=== PATIENT | male | born 1980 | race Two or more races ===

== ENCOUNTER 2025-05-17 19:05 | Emergency (ER) | payer MEDICAID, OTHER ==
[~2025-05-17] VITALS: Ht 190.5 cm; Wt 90.7 kg
--- NOTE | 2025-05-17 20:20 | ED.PDOC ---
History of Present Illness HPI Comments 44-year-old male who came to ER for headaches. Patient has a history of migraine headaches, the past 2 days he has been experiencing headaches, right temporal headaches, right periorbital pain, right facial pain. Patient has self-medicated ibuprofen but offered no relief. Denies any recent head trauma REVIEW OF SYSTEMS: General: No fever, no chills, or fatigue HEENT: No sore throat, no earache, no congestion, no neck pain. Cardiac: No chest pain. No palpitations. Lungs: No shortness of breath, no cough. GI: No nausea, no vomiting, no diarrhea, no constipation, no abdominal pain : No dysuria, frequency, or urgency. No hematuria. Musculoskeletal: No joint pain , no joint swelling, no extremity edema. Skin: No rash, no itching. Neuro: (+) headache, no dizziness, no weakness EXAM: General: Awake, alert and oriented. No acute distress. Skin: Skin in warm, dry and intact. Appropriate color for ethnicity. HEENT: The head is normocephalic and atraumatic. Conjunctivae are clear without exudates or hemorrhage. Sclera is non-icteric. EOM are intact. No signs of nystagmus. Eyelids are normal in appearance without swelling or lesions. Oral mucosa is pink and moist Neck: The neck is supple with normal range of motion. No JVD. Cardiac: Heart rate and rhythm are normal. No murmurs, gallops, or rubs are auscultated. Respiratory: No signs of respiratory distress. Lung sounds are clear in all lobes bilaterally without rales, rhonchi, or wheezes. Abdominal: Abdomen is soft, non-tender without distention. Bowel sounds are present and normoactive in all four quadrants. Extremities: Upper and lower extremities are atraumatic in appearance without deformity or edema. Neurological: The patient is awake, alert and oriented to person, place, and time with normal speech. Speech is clear. There is no facial asymmetry. Normal gait. Psychiatric: Appropriate mood and affect. Good judgement and insight Chief Complaint: Headache Time Seen by MD: 20:19 Reviewed Notes: Nurses Notes Allergies: Coded Allergies: NO KNOWN ALLERGIES (Unverified , 05/17/25) Information Source: Patient Mode of Arrival: Ambulatory Past Medical History Past Medical History (Other): Migraine headaches Surgical History: Denies all surgeries Family History Family History: Reviewed,noncontributory to illness Social History Smoker: Non-Smoker Alcohol: Denies ETOH Use Drugs: Denies Drug Use Lives In: Home Was a procedure done? Was a procedure done?: No Differential Dx Considerations may include: Migraine headaches, electrolyte imbalance, dehydration X-Ray, Labs, Meds, VS Vital Signs Date Time Temp Pulse Resp B/P (MAP) Pulse Ox O2 Delivery O2 Flow Rate FiO2 05/17/25 20:53 98.3 67 20 117/67 (84) 98 98.3 05/17/25 19:06 98.0 67 18 144/90 98 98.0 Current Medications Medications (Trade) Dose Ordered Sig/Jaspreet Route Start Time Stop Time Status Last Admin Sodium Chloride 1,000 ml @ 1,000 mls/hr Q1H ONCE IV 05/17/25 20:30 05/17/25 21:29 DC 05/17/25 21:00 Ketorolac Tromethamine (Toradol Injection) 30 mg ONCE ONCE IV 05/17/25 20:30 05/17/25 20:31 DC 05/17/25 20:59 Diphenhydramine HCl (Benadryl Injection) 25 mg ONCE ONCE IV 05/17/25 20:30 05/17/25 20:31 DC 05/17/25 20:59 Metoclopramide HCl (Reglan Injection) 10 mg ONCE ONCE IV 05/17/25 20:30 05/17/25 20:31 DC 05/17/25 20:59 Time of 1ST Reevaluation: 20:17 Reevaluation 1ST: Unchanged Patient Education/Counseling: Need For Follow Up Family Education/Counseling: No Family Present SEPSIS Sepsis Screen Date sepsis recognized/suspect: May 17, 2025 Time Sepsis recognized/suspect: 1907 Recent Procedure: No On Antibiotic Therapy: No Respiratory Rate >20: No Heart Rate >90: No Temp<36 C (96.8 F) or >38.3 C: No SBP <90 or MAP <65 mmHG: No New Acute Mental Status Change: No Is the patient on CPAP, BIPAP,: No Physician Orders Head Without Contrast (05/17/25 21:40) Vital Signs Date Time Temp Pulse Resp B/P (MAP) Pulse Ox O2 Delivery O2 Flow Rate FiO2 05/17/25 20:53 98.3 67 20 117/67 (84) 98 98.3 05/17/25 19:06 98.0 67 18 144/90 98 98.0 Medications Medications Dose Ordered Sig/Jaspreet Route Start Time Stop Time Status Last Admin Dose Admin Diphenhydramine HCl 25 mg ONCE ONCE IV 05/17/25 20:30 05/17/25 20:31 DC 05/17/25 20:59 Ketorolac Tromethamine 30 mg ONCE ONCE IV 05/17/25 20:30 05/17/25 20:31 DC 05/17/25 20:59 Metoclopramide HCl 10 mg ONCE ONCE IV 05/17/25 20:30 05/17/25 20:31 DC 05/17/25 20:59 Sodium Chloride 1,000 ml @ 1,000 mls/hr Q1H ONCE IV 05/17/25 20:30 05/17/25 21:29 DC 05/17/25 21:00 Departure 1 Departure Time of Disposition: 21:53 Impression: Primary Impression: Migraine Disposition: 01 HOME / SELF CARE / HOMELESS Condition: Stable Additional Instructions: ED DISCHARGE INSTRUCTIONS Instructions: Please read all instructions provided in this packet carefully. Although you have been discharged from the Emergency Department, this does not mean that you have a "clean bill of health". No definitive diagnosis for your symptoms has been made today. It is possible that you are in the process of developing a serious illness. This is why you must return to the ED without fail if any new or worsening symptoms (especially if your symptoms include chest pain, trouble breathing, abdominal pain, fever, headache, confusion, trouble seeing, or trouble walking) It is also very important that you see a primary care provider (PCP) within the next 3 days to follow up. If you are unable to get an appointment, return to the ED for re-evaluation. Overview Headaches have many possible causes. Most headaches aren't a sign of a more serious problem, and they will get better on their own. Home treatment may help you feel better faster. The doctor has checked you carefully, but problems can develop later. If you notice any problems or new symptoms, get medical treatment right away. Follow-up care is a mims part of your treatment and safety. Be sure to make and go to all appointments, and call your doctor if you are having problems. It's also a good idea to know your test results and keep a list of the medicines you take. How can you care for yourself at home? Rest in a quiet, dark room until your headache is gone. Close your eyes and try to relax or go to sleep. Don't watch TV or read. Put a cold, moist cloth or cold pack on the painful area for 10 to 20 minutes at a time. Put a thin cloth between the cold pack and your skin. Use a warm, moist towel or a heating pad set on low to relax tight shoulder and neck muscles. Have someone gently massage your neck and shoulders. Take pain medicines exactly as directed. If the doctor gave you a prescription medicine for pain, take it as prescribed. If you are not taking a prescription pain medicine, ask your doctor if you can take an [id number] medicine. Do not ignore new symptoms that occur with a headache, such as a fever, weakness or numbness, vision changes, or confusion. These may be signs of a more serious problem. To prevent headaches Keep a headache diary so you can figure out what triggers your headaches. Avoiding triggers may help you prevent headaches. Record when each headache began, how long it lasted, and what the pain was like (throbbing, aching, stabbing, or dull). Write down any other symptoms you had with the headache, such as nausea, flashing lights or dark spots, or sensitivity to bright light or loud noise. Note if the headache occurred near your period. List anything that might have triggered the headache, such as certain foods (chocolate, cheese, wine) or odors, smoke, bright light, stress, or lack of sleep. Find healthy ways to deal with stress. Headaches are most common during or right after stressful times. Take time to relax before and after you do something that has caused a headache in the past. Try to keep your muscles relaxed by keeping good posture. Check your jaw, face, neck, and shoulder muscles for tension, and try relaxing them. When sitting at a desk, change positions often, and stretch for 30 seconds each hour. Get plenty of sleep and exercise. Eat regularly. Long periods without food can trigger a headache. Limit caffeine by not drinking too much coffee, tea, or soda. But don't quit caffeine suddenly, because that can also give you headaches. Reduce eyestrain from computers by blinking frequently and looking away from the computer screen every so often. Make sure you have proper eyewear and that your monitor is set up properly, about an arm's length away. When should you call for help? Call 911 anytime you think you may need emergency care. For example, call if: You have signs of a stroke. These may include: Sudden numbness, paralysis, or weakness in your face, arm, or leg, especially on only one side of your body. Sudden vision changes. Sudden trouble speaking. Sudden confusion or trouble understanding simple statements. Sudden problems with walking or balance. A sudden, severe headache that is different from past headaches. Call your doctor now or seek immediate medical care if: You have a fever and a stiff neck. You have new nausea and vomiting, or you cannot keep down food or fluids. Your headache gets much worse. Watch closely for changes in your health, and be sure to contact your doctor if: Your headaches get worse, happen more often, or change in some way. You have new symptoms. Your life is disrupted by your headaches. For example, you often miss work, school, or other activities. You do not get better as expected. Comments Patient feeling improved after treatment in the ED. Wants to go home. Declined lab work. Advised to follow up with the primary care provider for further evaluation. Critical Care Note Critical Care Time?: No Stability Stability form required: No Heart Score Heart Score: Heart Score Response (Comments) Value History N/A 0 EKG N/A 0 Age N/A 0 Risk Factors N/A 0 Troponin N/A 0 Total 0 I personally scribed for JOHNY WHITTEN MD ([email or web address]) on 05/17/25 at 20:20. Electronically submitted by Casper Currie ([facility]). JOHNY WHITTEN MD May 17, 2025 20:20
[2025-05-17 20:53] VITALS: BP 117/67; PULSE 67; RESP 20; TEMP 98.3; O2SAT 98
[2025-05-17] MEDS: diphenhydrAMINE HCL 50 MG/1 ML VL IV ONE (20:59)
[2025-05-17] MEDS: KETOROLAC TROMETH 30 MG/ML 1ML VIAL IV ONE (20:59)
[2025-05-17] MEDS: METOCLOPRAMIDE HCL 5MG/ml INJ 2ml VIAL IV ONE (20:59)
[2025-05-17] MEDS: SODIUM CHLORIDE 0.9% 1,000 ML IV ONE (21:00)
--- NOTE | 2025-05-17 22:16 | DVH ---
COMPUTERIZED TOMOGRAPHY OF THE HEAD WITHOUT CONTRAST REASON FOR STUDY: Severe worsening migraine headaches COMPARISON: None TECHNIQUE: Helical tomographic scans were obtained through the brain. 2-D coronal and sagittal reformatted images are provided. Radiation optimization: All CT scans at this facility use at least one of these dose optimization techniques: Automated exposure control mA and/or kV adjustment per patient size (includes targeted exams where dose is matched to clinical indication) or iterative reconstruction. RADIATION DOSE: CTDI: 64.08 mGy DLP: 1027.01 mGy-cm FINDINGS: No suspicious intracranial hyperdensity to suggest acute blood. There is no mass effect nor midline shift. There is no hydrocephalus. The suprasellar cistern is intact. The calvarium is intact. The visualized mastoid air cells and paranasal sinuses are clear. IMPRESSION: No acute intracranial abnormality.
== END 2025-05-17 22:46 | disposition home or self-care (01) ==
LOC: ER 19:05
DX: G43.909 Migraine, unspecified, not intractable, without status migrainosus (principal); Z79.899 Other long term (current) drug therapy
CPT/HCPCS: 70450; 96361; 96374; 96375; 99285; J1200; J1885; J2765; J7030